=== PATIENT | male | born 1980 | race Caucasian/White ===

== ENCOUNTER 2017-10-04 15:20 | Emergency (ER) | payer OTHER ==
[~2017-10-04] VITALS: Ht 185.4 cm; Wt 81.8 kg
[2017-10-04 15:47] VITALS: BP 130/77
[2017-10-04] MEDS ORDERED: DICL100G18 TP (15:59)
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
== END 2017-10-04 16:11 | disposition home or self-care (01) ==
LOC: ER 15:20
DX: S29.012A Strain of muscle and tendon of back wall of thorax, initial encounter (principal); V89.2XXA Person injured in unspecified motor-vehicle accident, traffic, initial encounter; Y93.89 Activity, other specified; Y99.8 Other external cause status; Y92.89 Other specified places as the place of occurrence of the external cause
CPT/HCPCS: 99283